=== PATIENT | female | born 1980 | race Caucasian/White ===

== ENCOUNTER 2018-02-09 12:20 | Emergency (ER) | payer OTHER ==
[~2018-02-09] VITALS: Ht 160 cm; Wt 57.6 kg
[~2018-02-09 12:20] MED LIST: BENTYL20 M1 PO; ESCITALOPRAM OX20 MG PO; LORAZEPAM1 M1 PO; NAPROSYN500 M1 PO; PERCOCET 325 MG1 TA2 PO; PERCOCET 5-3251 EACH PO; SOMA250 M1 PO; VALTREX500 M1 PO; VICODIN 5-3001 EACH PO; ZOFRAN ODT4 M1 SL; ZOFRAN4 M2 SL
--- NOTE | 2018-02-09 13:00 | ED NECK/BACK PAIN COMPLAINT ---
History of Present Illness General Chief Complaint: Low Back Pain/Injury Stated Complaint: WORK RELATED INJURY Source: patient Exam Limitations: no limitations Vital Signs & Intake/Output Vital Signs & Intake/Output Vital Signs Date Time Temp Pulse Resp B/P B/P Pulse O2 O2 Flow FiO2 Mean Ox Delivery Rate 02/09 1421 97.0 81 15 105/71 98 Room Air Room Air 02/09 1249 99 Room Air 02/09 1224 97.4 90 18 109/70 98 Room Air Allergies Coded Allergies: bacitracin (ANAPHYLAXIS 10/18/16) bupropion (From WELLBUTRIN) (AGITATION 10/18/16) Reconcile Medications Carisoprodol (SOMA) 250 MG TABLET 1 TAB PO BID PRN BREAKTHROUGH PAIN Escitalopram Oxalate 20 MG TABLET 1 TAB PO DAILY MENTAL HEALTH (Reported) Lorazepam 1 MG TABLET 1 TAB PO BID PRN ANXIETY (Reported) Valacyclovir Hydrochloride (Valtrex) 500 MG TABLET 1 TAB PO DAILY ANTIBIOTIC, INFECTION (Reported) Triage Note: PT TO TRIAGE STATES THAT SHE WENT TO STAND A RESIDENT AND THE PATIENTS LEGS GAVE OUT AND SHE WENT TO CATCH HER AND PULLED HER WHOLE BACK FROM NECK TO LOW BACK Triage Nurses Notes Reviewed? 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 Our patient grabbed the patient and had a sudden onset of pain in her right lower back. The pain radiates up towards her neck and down her right leg. There is no sensory loss. The pain is 10 out of 10 and increases with any movement. There is no weakness or numbness. There is no incontinence of bowel or bladder. The pain is aching and throbbing in nature. There are no fevers chills. Patient denies any other injury. Past History Travel History Traveled to [place] past 21 day No Medical History Any Pertinent Medical History? see below for history Neurological: NONE EENT: CYST BEHIND EARDRUM Cardiovascular: NONE Respiratory: NONE Gastrointestinal: NONE Hepatic: NONE Renal: NONE Musculoskeletal: NONE Psychiatric: NONE Endocrine: NONE Blood Disorders: NONE Cancer(s): NONE MANAGER INTERNAL/Reproductive: OVARIAN CYSTS Surgical History Surgical History: hysterectomy, OOPHERECTOMY Psychosocial History What is your primary language Tongan Tobacco Use: Never used ETOH Use: denies use Illicit Drug Use: denies illicit drug use Family History Hx Contributory? No Review of Systems Review of Systems Constitutional: Reports: no symptoms. Eyes: Reports: no symptoms. Ears, Nose, Throat, Mouth: Reports: no symptoms. Respiratory: Reports: no symptoms. Cardiovascular: Reports: no symptoms. Gastrointestinal/Abdominal: Reports: no symptoms. Musculoskeletal: Reports: see HPI, back pain. Skin: Reports: no symptoms. Neurological/Psychological: Reports: no symptoms. All Other Systems: Reviewed and Negative Physical Exam Physical Exam General Appearance: well developed/nourished, alert, awake, anxious, severe distress Head: atraumatic, normal appearance Eyes: Bilateral: PERRL, EOMI. Ears, Nose, Throat, Mouth: hearing grossly normal, moist mucous membrane Neck: normal inspection, supple, full range of motion, no midline tenderness Respiratory: normal breath sounds, chest non-tender, no respiratory distress, lungs clear Cardiovascular: regular rate/rhythm, normal peripheral pulses Gastrointestinal: normal bowel sounds, soft, non-tender Back: normal inspection, decreased range of motion, muscle spasm Extremities: normal range of motion Straight Leg Raising: Right: Pain at ____ degrees (30). Left: Negative. Sensory: Medial Le: L4R, L4L. Top of Foot: 2: L5R, L5L. Sole of Foot: 2: SIR, NESHA. Motor: Deficit L4 Right: No Deficit L4 Left: No Deficit L5 Right: No Deficit L5 Left: No Deficit S1 Right: No Deficit S1 Right: No DTR: Deficit L4 Left: No Deficit L4 Right: No Deficit S1 Left: No Deficit S1 Right: No Patellar: 4: L4 Right, L4 Left. Achilles: 3: S1 Right, S1 Left. Neurologic/Psych: awake, alert, oriented x 3, normal mood/affect Skin: intact, normal color, warm/dry Core Measures CVA/TIA Diagnosis: No Progress Differential Diagnosis: herniated disc, myofascial strain, T/L spine injury Plan of Care: Orders Procedure Date/time Status CT LUMB SPINE WO IV CONTRAST 02/09 1256 Active Current Medications Sig/Thelma Start time Last Medication Dose Stop Time Status Admin Cyclobenzaprine HCl 10 MG ONCE ONE 02/09 1300 UNVr (Flexeril 10MG Tab) 02/09 1301 Ketorolac 60 MG ONCE ONE 02/09 1300 UNVr Tromethamine 02/09 1301 (Toradol) Oxycodone/ 1 TAB ONCE ONE 02/09 1300 UNVr Acetaminophen 02/09 1301 (Percocet) Prednisone 60 MG ONCE ONE 02/09 1300 UNVr 02/09 1301 Diagnostic Imaging: Viewed by Me: CT Scan. Discussed w/RAD: CT Scan. Comments: PATIENT: LES ASTUDILLO PRESENT AGE: 37 PATIENT ACCOUNT NO: [id number] : 81 LOCATION: [facility] ORDERING PHYSICIAN: Joao Cooper MD SERVICE DATE: 02/09/18 EXAM TYPE: CAT - CT LUMB SPINE WO IV CONTRAST EXAMINATION: CT LUMBAR SPINE WITHOUT CONTRAST CLINICAL INFORMATION: Question herniated disc. Sudden low back pain radiating into the right lower extremity. COMPARISON: No relevant prior imaging. TECHNIQUE: Speech Language Pathologist Travel images were obtained. CT acquisition of the lumbar spine was performed without intravenous administration of contrast. Data was reformatted into multiplanar images at the acquisition workstation. DLP: 210.36 mGy-cm FINDINGS: There is anatomic alignment and position of the vertebral bodies and posterior elements of the lumbar spine in the sagittal dimension. Vertebral body heights are preserved. Intervertebral disc heights are maintained at all levels. There is no acute fracture. Sacroiliac joints are symmetric. At L1-L2, L2-L3, L3-L4, and L4-L5 the annular contours are normal. No canal or neuroforaminal compromise at these 4 levels. At L5-S1 there is a broad shallow central protrusion that causes minimal indentation of the ventral thecal sac. No canal stenosis. No substantial neuroforaminal encroachment. Numerous Tarlov cysts are visualized within the sacrum causing smooth expansion of the sacral foramina. The largest measures 1.7 cm in diameter best illustrated on axial image 343 of 408 series 3. Limited visualization of the retroperitoneal structures reveals no abnormal finding. IMPRESSION: There is a broad shallow central protrusion at L5-S1 the causes minimal indentation of the ventral thecal sac. No canal stenosis. No foraminal nerve root compression. Of note there are multiple Tarlov cysts within the sacrum. DICTATED BY: Lencho Field MD DATE/TIME DICTATED:02/09/181351 CHILD ADOLESCENT PSYCHIATRIST:JAY DATE/TIME TRANSCRIBED:02/09/181351 CONFIDENTIAL, DO NOT COPY WITHOUT APPROPRIATE AUTHORIZATION. <Electronically signed in Other Vendor System> SIGNED BY: Lencho Field MD 02/09 1359 Departure Departure Disposition: HOME OR SELF CARE Condition: Stable Clinical Impression Primary Impression: Low back pain Referrals: Shay ESPANA,Lizbet Underwood MD,Merly (PCP/Family) Additional Instructions: USE MOIST HEAT TAKE MEDROL DOSE PACK PRESCRIBED TAKE PERCOCET NEEDED FORPAIN FOLLOW UP WITH OCCUPATIONAL MEDICINE AND DR. ARRINGTON RETURN IF SYMPTOMS WORSEN OR FOR ANY CONCERNS Departure Forms: Customer Survey General Discharge Information Industrial Accident Report Prescriptions: Current Visit Scripts Oxycodone HCl/Acetaminophen (Percocet 5-325 MG Tablet) 1-2 TAB PO Q6P PRN PAIN #20 TAB Methylprednisolone. (Medrol) 1 DP PO AD #1 DP 6 on day 1 then reduce by one tablet daily until gone
--- NOTE | 2018-02-09 13:59 | CT SCAN REPORT ---
EXAMINATION: CT LUMBAR SPINE WITHOUT CONTRAST CLINICAL INFORMATION: Question herniated disc. Sudden low back pain radiating into the right lower extremity. COMPARISON: No relevant prior imaging. TECHNIQUE: Cage Maker images were obtained. CT acquisition of the lumbar spine was performed without intravenous administration of contrast. Data was reformatted into multiplanar images at the acquisition workstation. DLP: 210.36 mGy-cm FINDINGS: There is anatomic alignment and position of the vertebral bodies and posterior elements of the lumbar spine in the sagittal dimension. Vertebral body heights are preserved. Intervertebral disc heights are maintained at all levels. There is no acute fracture. Sacroiliac joints are symmetric. At L1-L2, L2-L3, L3-L4, and L4-L5 the annular contours are normal. No canal or neuroforaminal compromise at these 4 levels. At L5-S1 there is a broad shallow central protrusion that causes minimal indentation of the ventral thecal sac. No canal stenosis. No substantial neuroforaminal encroachment. Numerous Tarlov cysts are visualized within the sacrum causing smooth expansion of the sacral foramina. The largest measures 1.7 cm in diameter best illustrated on axial image 343 of 408 series 3. Limited visualization of the retroperitoneal structures reveals no abnormal finding. IMPRESSION: There is a broad shallow central protrusion at L5-S1 the causes minimal indentation of the ventral thecal sac. No canal stenosis. No foraminal nerve root compression. Of note there are multiple Tarlov cysts within the sacrum.
[2018-02-09 14:21] VITALS: BP 105/71
[2018-02-09] MEDS ORDERED: PERCOCET 5-3251 EACH PO (14:23)
[2018-02-09] MEDS ORDERED: MEDROL4 M2 PO (14:23)
== END 2018-02-09 14:45 ==
LOC: ERH 12:20
DX: M54.5 Low back pain (principal); X50.0XXA Overexertion from strenuous movement or load, initial encounter; Y93.F9 Activity, other caregiving; Y92.9 Unspecified place or not applicable
CPT/HCPCS: J1885

== ENCOUNTER 2018-03-11 09:39 | Emergency (ER) | payer OTHER ==
[~2018-03-11] VITALS: Ht 160 cm; Wt 56.7 kg
[~2018-03-11 09:39] MED LIST changes: +DILAUDID2 M1 PO; +MEDROL4 M2 PO
[2018-03-11 10:03] VITALS: BP 91/60
--- NOTE | 2018-03-11 10:04 | ED NECK/BACK PAIN COMPLAINT ---
History of Present Illness General Chief Complaint: Low Back Pain/Injury Stated Complaint: LOWER BACK PAIN, WORK RELATED INJURY Source: patient Exam Limitations: no limitations Vital Signs & Intake/Output Vital Signs & Intake/Output Vital Signs Date Time Temp Pulse Resp B/P B/P Pulse O2 O2 Flow FiO2 Mean Ox Delivery Rate 03/11 1003 99.7 80 20 91/60 99 Room Air Allergies Coded Allergies: bacitracin (ANAPHYLAXIS 10/18/16) bupropion (From WELLBUTRIN) (AGITATION 10/18/16) Reconcile Medications Carisoprodol (SOMA) 250 MG TABLET 1 TAB PO BID PRN BREAKTHROUGH PAIN Escitalopram Oxalate 20 MG TABLET 1 TAB PO DAILY MENTAL HEALTH (Reported) Hydrocodone/Acetaminophen (Vicodin 5-300 MG Tablet) 5 MG-300 MG TABLET 1 TAB PO TID PRN PAIN Hydromorphone HCl (Dilaudid) 2 MG TABLET 1 TAB PO BIDP PRN pain Lorazepam 1 MG TABLET 1 TAB PO BID PRN ANXIETY (Reported) Meloxicam (Mobic) 15 MG TABLET 1 TAB PO DAILY PRN PAIN Methylprednisolone. (Medrol) 4 MG TAB.DS.PK 1 DP PO AD BACK PAIN 6 on day 1 then reduce by one tablet daily until gone Ondansetron (Zofran Odt) 4 MG TAB.RAPDIS 1 TAB SL TID PRN nausea Oxycodone HCl/Acetaminophen (Percocet 5-325 MG Tablet) 5 MG-325 MG TABLET 1-2 TAB PO Q6P PRN PAIN Valacyclovir Hydrochloride (Valtrex) 500 MG TABLET 1 TAB PO DAILY ANTIBIOTIC, INFECTION (Reported) Triage Note: PT C/O RIGHT LOWER BACK PAIN X 1 MONTH. STATES IT BEGAN AFTER BEING INJURED AT WORK. STATES ALREADY WENT THROUGH WORKER COMP. STATES PAIN HAS BEEN THERE SINCE THE INJURY BUT TODAY THE PAIN IS EXCRUCIATING Triage Nurses Notes Reviewed? yes Onset: Gradual Duration: getting worse Timing: recent history Location: paraspinous muscles : No Patient currently breastfeeds: No HPI: Patient is a 37 year old female who presents emergency room seen at approximately one month ago while at work she had acute onset of back pain since patient has followed up with neurosurgeon Dr. ARRINGTON and received a MRI showing noted herniated disc to her lumbar spine, patient return to emergency room with concerns of worsening back pain. MRI ON 02/28 IMPRESSION: 1. There is a small inferior foraminal disc protrusion on the right at L3-L4 without definite nerve root impingement. 2. There is a diffuse disc bulge extending into the neural foramina bilaterally at L4-L5 without definite nerve root impingement. 3. There is a posterior disc protrusion at T11-T12 which distorts the thecal sac. There is no spinal cord compression. A posterior disc protrusion is also noted at L5-S1. There is no central stenosis at these levels. Patient states that she has been taking Percocet prescriptions where she had an adverse reaction of itching sensation in which she was given Dilaudid however she believes that the Dilaudid just too strong and doesn't like the "feeling "of it Patient states that the pain as constant however made worse with ambulation and #movements. Patient denies any new trauma denies any saddle paresthesia bowel or bladder incontinence. Denies any fever chills denies any extremity paresthesia or weakness and only complains of right-sided low back pain with radiation pain down her right leg. Patient states that she has physical therapy appointment to be pending for further treatment And no surgical intervention is in the near future per patient and conversation with her neurosurgeon Past History Travel History Traveled to [place] past 21 day No Medical History Any Pertinent Medical History? see below for history Neurological: NONE EENT: CYST BEHIND EARDRUM Cardiovascular: NONE Respiratory: NONE Gastrointestinal: NONE Hepatic: NONE Renal: NONE Musculoskeletal: NONE Psychiatric: NONE Endocrine: NONE Blood Disorders: NONE Cancer(s): NONE SENIOR PYTHON DEVELOPER/Reproductive: OVARIAN CYSTS Surgical History Surgical History: hysterectomy, OOPHERECTOMY Psychosocial History What is your primary language Amharic Tobacco Use: Current Daily Use Daily Tobacco Use Amount/Type: => 5 Cigarettes daily ETOH Use: denies use Illicit Drug Use: denies illicit drug use Family History Hx Contributory? No Review of Systems Review of Systems Constitutional: Reports: no symptoms. Eyes: Reports: no symptoms. Ears, Nose, Throat, Mouth: Reports: no symptoms. Respiratory: Reports: no symptoms. Cardiovascular: Reports: no symptoms. Gastrointestinal/Abdominal: Reports: no symptoms. Musculoskeletal: Reports: see HPI, back pain, muscle pain, muscle stiffness. Skin: Reports: no symptoms. Neurological/Psychological: Reports: see HPI. Denies: numbness, paresthesia. All Other Systems: Reviewed and Negative Physical Exam Physical Exam General Appearance: alert, awake, mild distress Head: atraumatic Eyes: Bilateral: normal appearance. Ears, Nose, Throat, Mouth: moist mucous membrane Neck: normal inspection, supple Respiratory: normal breath sounds, chest non-tender Gastrointestinal: normal bowel sounds, soft, non-tender Neurologic/Psych: no motor/sensory deficits, awake, alert Skin: intact, normal color Comments: back - noted right-sided muscular point tenderness upon palpation decreased active range of motion noted normal inspection Bilateral lower extremity myotomes dermatomes DTRs intact Core Measures CVA/TIA Diagnosis: No Progress Differential Diagnosis: C spine injury, carotid dissection, cauda equina syn, herniated disc, myofascial strain, pyelo/UTI, sciatica, spinal cord inj, thoracic outlet syn, T/L spine injury, ureterolithiasis Plan of Care: NO CONCERN OF CAUDA EQUINA SYNDROME NO EMERGENT WARRANTING OF IMAGING TO PT SYMPTOMS AND EXAM FINDS HAD NORMAL STEADY GAIT Patient will be treated for concerns of lumbar radiculopathy and herniated disks Departure Departure Disposition: HOME OR SELF CARE Condition: Stable Clinical Impression Primary Impression: Lumbar herniated disc Secondary Impressions: Lumbar radiculopathy Referrals: Merly Underwood MD (PCP/Family) Additional Instructions: As discussed begin icing the area directly 20 minutes every 2 hours, begin the prescription of meloxicam for pain and inflammation of the prescription of Vicodin for breakthrough pain, prescription is waiting at [facility], follow-up with your neurosurgeon in 2 days if no better. If symptoms worsen return to emergency room Departure Forms: Customer Survey General Discharge Information Prescriptions: Current Visit Scripts Hydrocodone/Acetaminophen (Vicodin 5-300 MG Tablet) 1 TAB PO TID PRN PAIN #15 TAB Meloxicam (Mobic) 1 TAB PO DAILY PRN PAIN #15 TAB
[2018-03-11] MEDS ORDERED: MOBIC15 M1 PO (10:34)
[2018-03-11] MEDS ORDERED: VICODIN 5-3001 EACH PO (10:34)
== END 2018-03-11 10:44 ==
LOC: ERH 09:39
DX: M51.26 Other intervertebral disc displacement, lumbar region (principal); M54.16 Radiculopathy, lumbar region
CPT/HCPCS: 96372

== ENCOUNTER 2018-03-28 21:08 | Emergency (ER) | payer OTHER ==
[~2018-03-28] VITALS: Ht 160 cm; Wt 56.7 kg
[~2018-03-28 21:08] MED LIST changes: +MOBIC15 M1 PO
[2018-03-28 21:21] VITALS: BP 108/71
--- NOTE | 2018-03-28 21:27 | ED GENERAL ADULT ---
History of Present Illness General Chief Complaint: General Adult Stated Complaint: "ANXIETY, BACK PAIN, WORKERS COMP" Source: patient Exam Limitations: no limitations Vital Signs & Intake/Output Vital Signs & Intake/Output Vital Signs Date Time Temp Pulse Resp B/P B/P Pulse O2 O2 Flow FiO2 Mean Ox Delivery Rate 03/28 2121 98.3 83 18 108/71 99 Room Air Allergies Coded Allergies: acetaminophen (From PERCOCET) (ITHCY 03/28/18) bacitracin (ANAPHYLAXIS 10/18/16) bupropion (From WELLBUTRIN) (AGITATION 10/18/16) oxycodone (From PERCOCET) (ITHCY 03/28/18) Reconcile Medications Carisoprodol (SOMA) 250 MG TABLET 1 TAB PO BID PRN BREAKTHROUGH PAIN Escitalopram Oxalate 20 MG TABLET 1 TAB PO DAILY MENTAL HEALTH (Reported) Hydrocodone/Acetaminophen (Vicodin 5-300 MG Tablet) 5 MG-300 MG TABLET 1 TAB PO TID PRN PAIN TEN...[id number] Hydrocodone/Acetaminophen (Vicodin 5-300 MG Tablet) 5 MG-300 MG TABLET 1 TAB PO BID PRN pain Hydrocodone/Acetaminophen (Vicodin 5-300 MG Tablet) 5 MG-300 MG TABLET 1 TAB PO TID PRN PAIN Hydromorphone HCl (Dilaudid) 2 MG TABLET 1 TAB PO BIDP PRN pain Ibuprofen 800 MG TABLET 1 TAB PO TID PRN pain Lorazepam 1 MG TABLET 1 TAB PO BID PRN ANXIETY (Reported) Meloxicam (Mobic) 15 MG TABLET 1 TAB PO DAILY PRN PAIN Methylprednisolone. (Medrol) 4 MG TAB.DS.PK 1 DP PO AD BACK PAIN 6 on day 1 then reduce by one tablet daily until gone Ondansetron (Zofran Odt) 4 MG TAB.RAPDIS 1 TAB SL TID PRN nausea Oxycodone HCl/Acetaminophen (Percocet 5-325 MG Tablet) 5 MG-325 MG TABLET 1-2 TAB PO Q6P PRN PAIN Valacyclovir Hydrochloride (Valtrex) 500 MG TABLET 1 TAB PO DAILY ANTIBIOTIC, INFECTION (Reported) Triage Note: PT TO ED C/O WORSENING CHRONIC RT LOW BACK PAIN "NOW IT'S GOING UP TO MY MIDBACK" SEEN FOR SAME ON SEEN HERE FOR SAME 03/11 AND 03/17. "I'M WAITING FOR A PAIN MANAGEMENT DOCTOR BUT IT'S JUST NOT HAPPENING FAST ENOUGH" DENIES UTI S/S Triage Nurses Notes Reviewed? yes Onset: Gradual Duration: week(s): Timing: recent history Injury Environment: home Severity: mild Modifying Factors: Improves With: rest. Worsens With: movement. Associated Symptoms: muscle spasms, insomnia : No Patient currently breastfeeds: No HPI: 37 yo woman with right lower lumbar pain radiating to right buttock. "The only thing that works is vicodin." She notes that she suffered her back pain while at work several weeks ago. She has been in the care of a public affairs specialist, was referred to pain management, notes that her pain is not abated with ibuprofen prn. She notes increased anxiety and insomnia, denies SI/HI. She is otherwise well. Past History Travel History Traveled to [place] past 21 day No Medical History Any Pertinent Medical History? see below for history Neurological: NONE EENT: CYST BEHIND EARDRUM Cardiovascular: NONE Respiratory: NONE Gastrointestinal: NONE Hepatic: NONE Renal: NONE Musculoskeletal: chronic back pain Psychiatric: anxiety Endocrine: NONE Blood Disorders: NONE Cancer(s): NONE FAMILY SERVICE AIDE/Reproductive: OVARIAN CYSTS Surgical History Surgical History: hysterectomy, OOPHERECTOMY Psychosocial History What is your primary language Kyrgyz Tobacco Use: Current Daily Use Daily Tobacco Use Amount/Type: => 5 Cigarettes daily ETOH Use: denies use Illicit Drug Use: denies illicit drug use Family History Hx Contributory? No Review of Systems Review of Systems Constitutional: Reports: no symptoms. EENTM: Reports: no symptoms. Respiratory: Reports: no symptoms. Cardiovascular: Reports: no symptoms. GI: Reports: no symptoms. Genitourinary: Reports: no symptoms. Musculoskeletal: Reports: no symptoms. Skin: Reports: no symptoms. Neurological/Psychological: Reports: no symptoms. Hematologic/Endocrine: Reports: no symptoms. Immunologic/Allergic: Reports: no symptoms. All Other Systems: Reviewed and Negative Physical Exam Physical Exam General Appearance: well developed/nourished, mild distress Head: atraumatic, normal appearance Eyes: Bilateral: normal appearance. Ears, Nose, Throat: normal pharynx, normal ENT inspection Neck: normal inspection, supple, full range of motion Respiratory: normal breath sounds, chest non-tender, no respiratory distress, quiet respiration, lungs clear Cardiovascular: regular rate/rhythm Gastrointestinal: normal bowel sounds, soft, non-tender, no organomegaly Back: normal inspection, muscle spasm, no vertebral tenderness Extremities: normal inspection, normal capillary refill Neurologic/Psych: no motor/sensory deficits, awake, alert, oriented x 3 Comments: dtr's, strength, light touch intact bilaterally. negative straight leg test raise bilaterally. Core Measures ACS in differential dx? No CVA/TIA Diagnosis: No Sepsis Present: No Sepsis Focused Exam Completed? No Progress Differential Diagnoses I considered the following diagnoses in my evaluation of the patient: musculoskeletal pain vs herniation vs other. Plan of Care: Current Medications Sig/Thelma Start time Last Medication Dose Stop Time Status Admin Hydrocodone Bitart/ 1 TAB ONCE ONE 03/28 2200 AC Acetaminophen 03/28 2201 (Vicodin) Initial ED EKG: none Departure Departure Disposition: HOME OR SELF CARE Condition: Stable Clinical Impression Primary Impression: Back pain Referrals: Merly Underwood MD (PCP/Family) Departure Forms: Customer Survey General Discharge Information Prescriptions: Current Visit Scripts Hydrocodone/Acetaminophen (Vicodin 5-300 MG Tablet) 1 TAB PO TID PRN PAIN #10 TAB TEN...[id number] Ibuprofen 1 TAB PO TID PRN pain #60 TAB Ref 2 Comments discussed at length... given her medication intolerance, will use what has worked in the past... vicodin, rather than parenteral pain medications, flexeril... encouraged close follow up. Critical Care Note Critical Care Note Critical Care Time: non-applicable
[2018-03-28] MEDS ORDERED: VICODIN 5-3001 EACH PO ×2 (21:48)
[2018-03-28] MEDS ORDERED: IBUPROFEN800 M1 PO (21:50)
== END 2018-03-28 22:05 ==
LOC: ERH 21:08
DX: M54.5 Low back pain (principal)

== ENCOUNTER 2018-08-05 09:50 | Emergency (ER) | payer OTHER ==
[~2018-08-05] VITALS: Ht 160 cm; Wt 54.0 kg
[~2018-08-05 09:50] MED LIST changes: +ATIVAN1 M1 PO; +GABAPENTIN300 M2 PO; +IBUPROFEN800 M1 PO; +VALACYCLOVIR500 M1 PO; +XANAX XR1 M1 PO; +ZOFRAN4 M2 PO
--- NOTE | 2018-08-05 10:56 | ED GENERAL ADULT ---
See Addendum History of Present Illness General Chief Complaint: Psychiatric Related Complaint Stated Complaint: ANXIETY/PANIC ATTACK MED REFILL Source: patient Exam Limitations: no limitations Vital Signs & Intake/Output Vital Signs & Intake/Output Vital Signs Date Time Temp Pulse Resp B/P B/P Pulse O2 O2 Flow FiO2 Mean Ox Delivery Rate 08/05 0955 98.5 91 15 90/57 98 Room Air Room Air Allergies Coded Allergies: bacitracin (ANAPHYLAXIS 10/18/16) bupropion (From WELLBUTRIN) (AGITATION 10/18/16) oxycodone (From PERCOCET) (ITCHY 07/16/18) Reconcile Medications Escitalopram Oxalate 20 MG TABLET 1 TAB PO DAILY ANXIETY (Reported) LORazepam (Ativan) 1 MG TAB 1 TAB PO BID PRN ANXIETY (Reported) Valacyclovir HCl (Valacyclovir) 500 MG TABLET 1 TAB PO BID ANTIVIRAL ( Reported) Triage Note: PT TO ED FOR SCRIPT FOR ATIVAN. PT TOLD TO COME TO ED BY CARE PROVIDER FOR TOX SCREEN AND SCRIPT FOR ATIVAN. PT DENIES SI/HI Triage Nurses Notes Reviewed? yes : No Patient currently breastfeeds: No HPI: Patient is a 38-year-old female with past medical history of anxiety, panic attacks, and substance abuse disorder with alprazolam for which she was treated as an inpatient detox center several years ago. She has been on lorazepam ever since, for the past 7 years, without any abuse with that medication and with good control of her anxiety symptoms. She states that the lorazepam does not get her high whereas the alprazolam dose. She was recently seen in the emergency department with a panic attack that was refractory to her lorazepam after her daughters exhibited cutting behavior; she did not disclose her history of alprazolam abuse at that time, and a short alprazolam prescription was provided. She took this prescription and now is regretful of that given her history of abuse. She utilize the prescription within 2-3 days and discarded her lorazepam, figuring that her symptoms would be better controlled. Now, she is without any benzodiazepines and is concerned that she could withdraw and suffered benzodiazepine withdrawal seizures, as a friend of hers did recently. She denies any other symptoms at present however. Past History Travel History Traveled to [place] past 21 day No Medical History Any Pertinent Medical History? see below for history Neurological: NONE EENT: CYST BEHIND EARDRUM Cardiovascular: NONE Respiratory: NONE Gastrointestinal: NONE Hepatic: NONE Renal: NONE Musculoskeletal: chronic back pain Psychiatric: anxiety Endocrine: NONE Blood Disorders: NONE Cancer(s): NONE PAIL TESTER/Reproductive: OVARIAN CYSTS Surgical History Surgical History: hysterectomy, OOPHERECTOMY Psychosocial History What is your primary language Setswana Tobacco Use: Current Daily Use Daily Tobacco Use Amount/Type: => 5 Cigarettes daily ETOH Use: denies use Illicit Drug Use: denies illicit drug use Family History Hx Contributory? No Review of Systems Review of Systems Constitutional: Reports: no symptoms. Neurological/Psychological: Reports: anxiety (Of). All Other Systems: Reviewed and Negative (no appreciated) Physical Exam Physical Exam General Appearance: well developed/nourished, no apparent distress, anxious Comments: HEENT: Inspection of the head reveals a normocephalic cranium with no signs of trauma. Ophtho: Extraocular muscles are intact. The sclera are noninjected, and there is no obvious discharge. Neck: No signs of trauma or asymmetry to the neck. Respiratory: The patient exhibits no signs of labored breathing. Cardiac: Non-tachycardic. GI: No gross abdominal distention. : Deferred Neuro: The patient is oriented to person, place, time, and situation, with no obvious focal motor deficits. Cranial nerves II through XII are intact, and gait is normal. Behavioral: Calm, cooperative, with some anxiety but good insight and no suicidality or other signs of psychosis. Dermatologic: Dermatologic examination reveals no obvious rashes or exanthems. Core Measures ACS in differential dx? No CVA/TIA Diagnosis: No Sepsis Present: No Sepsis Focused Exam Completed? No Progress Differential Diagnoses I considered the following diagnoses in my evaluation of the patient: anxiety, panic attacks, substance use disorder, SI Plan of Care: Orders Procedure Date/time Status URINE DRUGS OF ABUSE 08/05 1056 Active Laboratory Tests 08/05/18 1107: Methadone Screen Pending, Barbiturate Screen Pending, Ur Phencyclidine Scrn Pending, Amphetamines Screen Pending, U Benzodiazepines Scrn Pending, Urine Cocaine Screen Pending, Urine Cannabis Screen Pending Patient presented after running out of her alprazolam which was prescribed when her lorazepam was ineffective for a recent panic attack. However, she now is regretful that she accepted the prescription of alprazolam since she has a history of abuse with this medication. She utilized the entire course in 2-3 days and now is without any benzodiazepines as she discarded her lorazepam with a prescription of the alprazolam. She has no clinical signs of benzodiazepine withdrawal at present, however I feel it is important to resume her course of benzodiazepines if that is to be avoided. I discussed the case with [facility] to ensure long-term follow-up and they were able to give her appointment in the near future. I prescribed four tablets of alprazolam 1mg BID PRN to get her through until then and counseled her on appropriate use. She had no SI whatsoever, and her medical screening examination was otherwise negative, patient stable at time of discharge. Initial ED EKG: none Departure Departure Time of Disposition: 1102 Disposition: HOME OR SELF CARE Condition: Stable Clinical Impression Primary Impression: Anxiety disorder Qualifiers: Anxiety disorder type: other anxiety disorder Qualified Code: F41.8 - Other specified anxiety disorders Referrals: Kj ESPANA,Merly (PCP/Family) Gayathri Donohue APRN Additional Instructions: We have prescribed four (4) tablets of Ativan to your pharmacy ([facility] in [place]), and we recommend strongly that you follow up with your therapist and CERTIFIED APPLIANCE SERVICE TECHNICIAN at [facility]. We have made you appointments: Please see Myrna Donohue APRN on 08/07 at 8 AM and your therapist Mallory Carter on either 08/11/18 or 08/12/18 at 1pm. Keeping these appointments is the only way you will be able to get back on track with your long-term medication regiments. Departure Forms: Customer Survey General Discharge Information Prescriptions: Current Visit Scripts Alprazolam (Xanax) 1 TAB PO BID PRN ANXIETY/STRESS #4 TAB Critical Care Note Critical Care Note Critical Care Time: non-applicable
[2018-08-05] MEDS ORDERED: XANAX1 M1 PO (11:39)
[2018-08-05 11:49] VITALS: BP 102/60
[2018-08-05] MEDS ORDERED: ATIVAN1 M1 PO (11:58)
== END 2018-08-05 11:50 ==
LOC: ERH 09:50
DX: F41.9 Anxiety disorder, unspecified (principal); F17.210 Nicotine dependence, cigarettes, uncomplicated; F13.11 Sedative, hypnotic or anxiolytic abuse, in remission
CPT/HCPCS: 80307